=== PATIENT | female | born 1975 | race Two or more races ===

== ENCOUNTER → 2024-12-22 | Emergency (ER) | payer OTHER ==
[~2024-12-22] VITALS: Ht 170.2 cm; Wt 54.4 kg
[~2024-12-22] MED LIST: CRESTOR40 MG PO; ZESTRIL10 M1 PO
== END | disposition left against medical advice (07) ==
LOC: ER 21:08
DX: Z53.21 Procedure and treatment not carried out due to patient leaving prior to being seen by health care provider (principal)